=== PATIENT | male | born 1960 | race African-American/Black ===

== ENCOUNTER 2019-08-18 07:24 | Outpatient (CLI) | payer OTHER, SELFPAY | END 2019-08-18 07:25 | disposition home or self-care (01) | DX: H90.3 Sensorineural hearing loss, bilateral (principal) | CPT/HCPCS: 92557; 92567 ==

== ENCOUNTER 2019-09-10 08:23 | Outpatient (RCR) | payer OTHER, SELFPAY | END 2019-09-10 23:59 | disposition home or self-care (01) | LOC: ANHAUDIO 08:23 | DX: Z46.1 Encounter for fitting and adjustment of hearing aid (principal) | CPT/HCPCS: V5221; V5240 ==